=== PATIENT | female | born 1935 | race Caucasian/White ===

== ENCOUNTER 2021-06-21 14:38 | Outpatient (RCR) | payer MEDICARE, OTHER ==
[2021-04-23 12:13] LABS: BASOPHILS % (AUTO) 1 % (0-10); EOSINOPHILS # (AUTO) 0.1 10^3/uL (0.0-0.3); EOSINOPHILS % (AUTO) 1 % (0-10); HEMATOCRIT 37 % (35-52); HEMOGLOBIN 12.4 g/dL (11.5-16.0); LYMPHOCYTES # (AUTO) 0.5 10^3/uL (1.0-4.0); LYMPHOCYTES % (AUTO) 11 % (12-44); MEAN CORPUSCULAR HEMOGLOBIN 33 pg (25-34); MEAN CORPUSCULAR HGB CONC 33 g/dL (32-36); MEAN CORPUSCULAR VOLUME 98 fL (80-99); MEAN PLATELET VOLUME 9.3 fL (9.0-12.2); MONOCYTES # (AUTO) 0.5 10^3/uL (0.0-1.0); MONOCYTES % (AUTO) 12 % (0-12); NEUTROPHILS % (AUTO) 74 % (42-75); PLATELET COUNT 283 10^3/uL (130-400)
[2021-04-23 12:33] LABS: ALBUMIN 3.7 GM/DL (3.2-4.5); BILIRUBIN,TOTAL 0.3 MG/DL (0.1-1.0); CALCIUM 9.1 MG/DL (8.5-10.1); CREATININE SERUM 0.74 MG/DL (0.60-1.30); POTASSIUM 4.6 MMOL/L (3.6-5.0); TOTAL PROTEIN 6.4 GM/DL (6.4-8.2)
== END 2021-07-22 | disposition home or self-care (01) ==
LOC: ONC 14:38
PROVIDERS: ATTEND Internal Medicine Hematology & Oncology
DX: C20 Malignant neoplasm of rectum (principal); G50.0 Trigeminal neuralgia; Z92.21 Personal history of antineoplastic chemotherapy; Z98.890 Other specified postprocedural states; Z93.3 Colostomy status
CPT/HCPCS: 80053; 82378; 85025; G0463; 99213; 99214

== ENCOUNTER 2021-08-06 14:10 | Outpatient (RCR) | payer MEDICARE, OTHER | END 2021-10-01 | disposition home or self-care (01) | LOC: ONC 14:10 | PROVIDERS: ATTEND Internal Medicine Hematology & Oncology | DX: C20 Malignant neoplasm of rectum (principal); G50.0 Trigeminal neuralgia; Z92.21 Personal history of antineoplastic chemotherapy; Z98.890 Other specified postprocedural states; Z93.3 Colostomy status ==